=== PATIENT | female | born 1980 | race African-American/Black ===

== ENCOUNTER → 2017-05-16 | Outpatient (CLI) | payer OTHER ==
[2014-09-22 19:02] VITALS: BP 99/58
[~2017-05-16] MED LIST: EXCEDRIN TENSIO1 CAP PO; FLONASE NASAL S16 GM NS; LIDODERM 5% PATC1 EA TP; MUCINEX D1 TER PO; OXYCONTIN10 MG PO; OXYCONTIN20 MG PO
== END ==
LOC: LAB 14:42
DX: R51 Headache (principal)

== ENCOUNTER → 2018-04-20 | Outpatient (CLI) | payer OTHER ==
[2014-09-22 19:02] VITALS: BP 99/58
[2018-04-20 20:37] LABS: CLUE CELLS PRESENT (Not Observd)
== END ==
LOC: LAB 14:26
PROVIDERS: Internal Medicine
DX: N89.8 Other specified noninflammatory disorders of vagina (principal)
CPT/HCPCS: Q0111

== ENCOUNTER → 2019-02-14 | Outpatient (CLI) | payer OTHER ==
[2014-09-22 19:02] VITALS: BP 99/58
[2019-02-14 16:41] LABS: CLUE CELLS NOT OBSERVED (Not Observd)
== END ==
LOC: LAB 16:20
PROVIDERS: Physician Assistant
DX: N89.8 Other specified noninflammatory disorders of vagina (principal)
CPT/HCPCS: Q0111

== ENCOUNTER → 2019-03-19 | Outpatient (CLI) | payer OTHER ==
[2014-09-22 19:02] VITALS: BP 99/58
[2019-03-19 13:35] LABS: EOS # 0.3 (0.04-0.40); EOS % 4.5 % (1.0-5.0); HEMATOCRIT 36.7 % (37.0-47.0); HEMOGLOBIN 12.3 g/dL (12.5-16.0); MEAN CELL VOLUME 90 fl (78-100); MEAN CORPUSCULAR HEMOGLOBIN 30 pg (27-31); MEAN CORPUSCULAR HGB CONC 34 g/dL (33-37); MONO # 0.6 (0.20-0.80); NEU # 2.9 (1.40-6.50); PLATELET COUNT 167 K/mm3 (130-400); RED BLOOD COUNT 4.06 M/mm3 (4.10-5.30); RED CELL DISTRIBUTION WIDTH 11.7 % (11.5-14.5); WHITE BLOOD COUNT 5.8 K/mm3 (4.8-10.8)
[2019-03-19 13:43] LABS: TOTAL PROTEIN 6.5 g/dL (6.4-8.3)
[2019-03-19 13:45] LABS: TOTAL BILIRUBIN 0.3 mg/dL (0.2-1.2)
[2019-03-19 13:55] LABS: URINE APPEARANCE HAZY; URINE COLOR YELLOW
[2019-03-19 13:56] LABS: URINE BILIRUBIN NEGATIVE (NEGATIVE); URINE BLOOD NEGATIVE (NEGATIVE); URINE GLUCOSE NEGATIVE (NEGATIVE); URINE KETONE NEGATIVE (NEGATIVE); URINE LEUKOCYTE ESTERASE TRACE (NEGATIVE); URINE NITRATE NEGATIVE (NEGATIVE); URINE PROTEIN(semi-quant) TRACE mg/dL (NEGATIVE); URINE UROBILINOGEN NORMAL (NORMAL)
== END ==
LOC: LAB 13:18
PROVIDERS: Internal Medicine
DX: Z00.00 Encounter for general adult medical examination without abnormal findings (principal)

== ENCOUNTER 2019-05-05 10:28 | Emergency (ER) | payer OTHER ==
[~2019-05-05] VITALS: Ht 175.3 cm; Wt 71.4 kg
[2019-05-05] MEDS ORDERED: OXYCODONE HCL30 MG PO (10:42)
[2019-05-05] MEDS ORDERED: IBU800 M1 PO (10:43)
[2019-05-05] MEDS ORDERED: DIAZEPAM10 MG PO (10:43)
[2019-05-05] MEDS ORDERED: LIDOCAINE1 EACH TP (10:43)
[2019-05-05] MEDS ORDERED: PREGABALIN50 MG PO (10:44)
[2019-05-05 11:45] VITALS: BP 110/68
== END 2019-05-05 11:43 | disposition home or self-care (01) ==
LOC: ED 10:28
DX: J02.0 Streptococcal pharyngitis (principal); F41.9 Anxiety disorder, unspecified; F43.10 Post-traumatic stress disorder, unspecified
CPT/HCPCS: J0561

== ENCOUNTER → 2019-05-09 | Outpatient (CLI) | payer OTHER ==
[2019-05-05 11:45] VITALS: BP 110/68
[~2019-05-09] MED LIST changes: +DIAZEPAM10 MG PO; +IBU800 M1 PO; +LIDOCAINE1 EACH TP; +OXYCODONE HCL30 MG PO; +PREGABALIN50 MG PO
[2019-05-10 06:15] LABS: CLUE CELLS PRESENT (Not Observd)
== END ==
LOC: LAB 15:42
PROVIDERS: Nurse Practitioner
DX: N89.8 Other specified noninflammatory disorders of vagina (principal)
CPT/HCPCS: Q0111

== ENCOUNTER → 2020-03-23 | Outpatient (CLI) | payer OTHER | LOC: LAB 12:52 | DX: Z20.828 Contact with and (suspected) exposure to other viral communicable diseases (principal) ==

== ENCOUNTER → 2020-03-26 | Day surgery (SDC) | payer OTHER | LOC: MSO 09:19 | DX: R11.2 Nausea with vomiting, unspecified (principal); R68.81 Early satiety; G89.29 Other chronic pain; F11.90 Opioid use, unspecified, uncomplicated; Z88.8 Allergy status to other drugs, medicaments and biological substances; Z90.710 Acquired absence of both cervix and uterus | CPT/HCPCS: 00731; J2704; J3010; J7120 ==

== ENCOUNTER → 2020-08-24 | Outpatient (CLI) | payer OTHER ==
[2020-08-24 16:17] LABS: EOS # 0.1 (0.04-0.40); EOS % 1.7 % (1.0-5.0); HEMOGLOBIN 12.8 g/dL (12.5-16.0); LYMPH# 1.4 (1.50-4.00); MEAN CELL VOLUME 90 fl (78-100); MEAN CORPUSCULAR HEMOGLOBIN 31 pg (27-31); MEAN CORPUSCULAR HGB CONC 35 g/dL (33-37); MEAN PLATELET VOLUME 10.9 fl (7.4-10.4); MONO # 0.4 (0.20-0.80); NEU # 2.2 (1.40-6.50); PLATELET COUNT 141 K/mm3 (130-400); RED BLOOD COUNT 4.13 M/mm3 (4.10-5.30); RED CELL DISTRIBUTION WIDTH 11.4 % (11.5-14.5); WHITE BLOOD COUNT 4.1 K/mm3 (4.8-10.8)
[2020-08-24 16:36] LABS: ALBUMIN 4.4 g/dL (3.5-5.0)
[2020-08-24 16:37] LABS: POTASSIUM 4.3 mmol/L (3.5-5.1)
[2020-08-24 16:38] LABS: CALCIUM 9.1 mg/dL (8.3-10.5)
[2020-08-24 16:39] LABS: TOTAL PROTEIN 7.2 g/dL (6.4-8.3)
[2020-08-24 16:41] LABS: TOTAL BILIRUBIN 0.6 mg/dL (0.2-1.2)
== END ==
LOC: LAB 15:52
PROVIDERS: Internal Medicine
DX: R63.4 Abnormal weight loss (principal)

== ENCOUNTER → 2020-09-25 | Outpatient (CLI) | payer OTHER | LOC: LAB 10:48 | DX: R30.9 Painful micturition, unspecified (principal) ==

== ENCOUNTER → 2021-03-23 | Outpatient (CLI) | payer OTHER | LOC: RAD 11:24 | DX: M79.645 Pain in left finger(s) (principal) ==

== ENCOUNTER → 2021-04-21 | Outpatient (CLI) | payer OTHER ==
[2021-04-21 16:49] LABS: CLUE CELLS NOT OBSERVED (Not Observd)
== END ==
LOC: LAB 16:22
PROVIDERS: Nurse Practitioner
DX: N89.8 Other specified noninflammatory disorders of vagina (principal)
CPT/HCPCS: Q0111

== ENCOUNTER → 2021-05-25 | Outpatient (CLI) | payer OTHER ==
[2021-05-25 17:08] LABS: BASO # 0.01 K/mm3 (0.02-0.10); EOS # 0.04 K/mm3 (0.04-0.40); EOS % 1.1 % (1.0-5.0); HEMOGLOBIN 12.4 g/dL (12.5-16.0); LYMPH# 1.86 K/mm3 (1.50-4.00); MEAN CELL VOLUME 91 fl (78-100); MEAN CORPUSCULAR HEMOGLOBIN 31 pg (27-31); MEAN CORPUSCULAR HGB CONC 34 g/dL (33-37); MEAN PLATELET VOLUME 10.8 fl (7.4-10.4); MONO # 0.23 K/mm3 (0.20-0.80); NEU # 1.46 K/mm3 (1.40-6.50); PLATELET COUNT 114 K/mm3 (130-400); RED BLOOD COUNT 3.97 M/mm3 (4.10-5.30); RED CELL DISTRIBUTION WIDTH 11.6 % (11.5-14.5); WHITE BLOOD COUNT 3.6 K/mm3 (4.8-10.8)
[2021-05-25 17:16] LABS: ALBUMIN 4.5 g/dL (3.5-5.0); POTASSIUM 3.7 mmol/L (3.5-5.1)
[2021-05-25 17:17] LABS: CALCIUM 9.6 mg/dL (8.3-10.5)
[2021-05-25 17:19] LABS: TOTAL PROTEIN 7.4 g/dL (6.4-8.3)
[2021-05-25 17:21] LABS: TOTAL BILIRUBIN 0.3 mg/dL (0.2-1.2)
[2021-05-31 12:23] LABS: A/G RATIO (PEP) 1.05 (()); BETA GLOBULINS (PEP) 0.9 g/dL (0.7-1.2)
== END ==
LOC: LAB 16:51
PROVIDERS: Internal Medicine
DX: Z00.00 Encounter for general adult medical examination without abnormal findings (principal)

== ENCOUNTER → 2021-06-14 | Outpatient (CLI) | payer OTHER | LOC: RAD 15:26 | DX: M18.12 Unilateral primary osteoarthritis of first carpometacarpal joint, left hand (principal) ==

== ENCOUNTER → 2021-06-15 | Outpatient (CLI) | payer OTHER | LOC: RAD 09:15 | DX: M18.12 Unilateral primary osteoarthritis of first carpometacarpal joint, left hand (principal) ==

== ENCOUNTER → 2023-02-15 | Outpatient (CLI) | payer OTHER ==
[2023-02-15 15:05] LABS: CLUE CELLS OBSERVED (Not Observd)
== END ==
LOC: LAB 14:19
PROVIDERS: Physician Assistant
DX: N89.8 Other specified noninflammatory disorders of vagina (principal); R10.12 Left upper quadrant pain
CPT/HCPCS: Q0111

== ENCOUNTER → 2023-07-06 | Outpatient (CLI) | payer OTHER ==
[2023-07-06 09:58] LABS: BASO # 0.02 K/mm3 (0.02-0.10); EOS # 0.09 K/mm3 (0.04-0.40); HEMATOCRIT 37.6 % (37.0-47.0); HEMOGLOBIN 12.7 g/dL (12.5-16.0); LYMPH# 1.38 K/mm3 (1.50-4.00); MEAN CELL VOLUME 92 fl (78-100); MEAN CORPUSCULAR HEMOGLOBIN 31 pg (27-31); MEAN CORPUSCULAR HGB CONC 34 g/dL (33-37); MEAN PLATELET VOLUME 11.5 fl (7.4-10.4); MONO # 0.29 K/mm3 (0.20-0.80); NEU # 2.74 K/mm3 (1.40-6.50); PLATELET COUNT 134 K/mm3 (130-400); RED BLOOD COUNT 4.07 M/mm3 (4.10-5.30); RED CELL DISTRIBUTION WIDTH 11.5 % (11.5-14.5); WHITE BLOOD COUNT 4.5 K/mm3 (4.8-10.8)
[2023-07-06 10:06] LABS: ALBUMIN 4.2 g/dL (3.5-5.0)
[2023-07-06 10:08] LABS: CALCIUM 9.4 mg/dL (8.3-10.5)
[2023-07-06 10:11] LABS: TOTAL BILIRUBIN 0.3 mg/dL (0.2-1.2)
[2023-07-06 10:16] LABS: MAGNESIUM 1.96 mg/dL (1.60-2.60)
[2023-07-06 20:32] LABS: FOLATE (FOLIC ACID) 10.4 ng/mL (2.0-20.0)
== END ==
LOC: LAB 09:38
PROVIDERS: Internal Medicine
DX: K90.9 Intestinal malabsorption, unspecified (principal); F32.9 Major depressive disorder, single episode, unspecified

== ENCOUNTER → 2023-07-17 | Outpatient (CLI) | payer OTHER ==
[2023-07-18 12:46] LABS: ANA SCREEN with REFLEX Negative (Negative)
[2023-07-21 13:37] LABS: ANTI-CYC CITRULLINATED PEPT AB 6
== END ==
LOC: LAB 11:14
PROVIDERS: Internal Medicine
DX: M25.50 Pain in unspecified joint (principal)

== ENCOUNTER → 2024-02-17 | Outpatient (CLI) | payer OTHER ==
[2024-02-17 15:02] LABS: CLUE CELLS PRESENT (Not Observd)
== END ==
LOC: LAB 14:33
PROVIDERS: Nurse Practitioner Family
DX: N89.8 Other specified noninflammatory disorders of vagina (principal)
CPT/HCPCS: Q0111

== ENCOUNTER → 2024-03-06 | Outpatient (CLI) | payer OTHER ==
[~2024-03-06] VITALS: Ht 175.3 cm; Wt 71.4 kg
[~2024-03-06] MED LIST changes: +Ketorolac 30 MG/ML VIAL IV ONE; +diphenhydrAMINE 50 MG/ML 1 ML VIAL IV ONE
[2024-03-06 17:35] LABS: URINE WBC 0 /hpf (0-3)
[2024-03-06 17:43] LABS: PH-URINE 5.5 (5.0 - 8.0); URINE APPEARANCE CLEAR (CLEAR); URINE BILIRUBIN NEGATIVE (NEGATIVE); URINE BLOOD NEGATIVE (NEGATIVE); URINE COLOR YELLOW (YELLOW); URINE GLUCOSE NEGATIVE (NEGATIVE); URINE KETONE NEGATIVE (NEGATIVE); URINE LEUKOCYTE ESTERASE NEGATIVE (NEGATIVE); URINE NITRATE NEGATIVE (NEGATIVE); URINE PROTEIN(semi-quant) NEGATIVE (NEGATIVE)
[2024-03-06 17:44] LABS: URINE MUCUS PRESENT (NOT PRESENT)
[2024-03-06 18:13] VITALS: BP 114/85
== END ==
LOC: LAB 17:14
PROVIDERS: Family Medicine
DX: B37.31 Acute candidiasis of vulva and vagina (principal)
CPT/HCPCS: J0780; J1200; J1885; J7120